=== PATIENT | male | born 1990 | race African-American/Black ===

== ENCOUNTER 2018-11-26 07:50 | Emergency (ER) | payer SELFPAY ==
[2018-11-26 08:05] VITALS: BP 143/86; PULSE 69; TEMP 98.2; BMI 32.1
--- NOTE | 2018-11-26 08:20 | PDOC ---
History of Present Illness - General Chief Complaint: Pain Stated Complaint: VOMITING BLOOD - History of Present Illness Initial Comments: The pt is a 28M w/ no reported PMH who presents for evaluation of vomiting x4- 5 that started at 0430 today w/ a small amount of blood streaked emesis and associated anterior thoracic wall pain. He states that he was drinking last night and that's was incited the emesis. He has never had this happen before. He chest pain is chronic, described as a 'pinch', is non-radiating, but mildly worse today. Denies illness, fevers/chills, DAL[place], vision changes, SOB, abdominal pain, is no longer nauseated, denies D/C, dysuria, hematuria, blood in his stool. 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 Allergies: Denies SH: Social EtOH, denies tobacco and illicit drug use PMD: N/A 11/26/18 08:36 Past History - Past Medical History Allergies/Adverse Reactions: Allergies Allergy/AdvReac Type Severity Reaction Status Date / Time No Known Allergies Allergy Verified 11/26/18 08:02 COPD: No - Immunization History Immunization Up to Date: Yes - Suicide/Smoking/Psychosocial Hx Smoking History: Never smoked Information on smoking cessation initiated: No Hx Alcohol Use: No Drug/Substance Use Hx: No Review of Systems - Review of Systems Able to Perform ROS?: Yes Comments:: GENERAL/CONSTITUTIONAL: No fever or chills. No weakness HEAD, EYES, EARS, NOSE AND THROAT: No change in vision. No ear pain or discharge. No sore throat CARDIOVASCULAR: No chest pain or shortness of breath RESPIRATORY: Denies cough, hemoptysis GASTROINTESTINAL: No diarrhea or constipation GENITOURINARY: No dysuria, frequency, or change in urination MUSCULOSKELETAL: No joint or muscle swelling or pain. No neck or back pain SKIN: No rash NEUROLOGIC: No headache, vertigo, loss of consciousness, or change in strength/ sensation ENDOCRINE: No increased thirst. No abnormal weight change HEMATOLOGIC/LYMPHATIC: No anemia, easy bleeding, or history of blood clots ALLERGIC/IMMUNOLOGIC: No hives or skin allergy 11/26/18 08:20 Is the patient limited [place] proficient: No *Physical Exam - Vital Signs Last Vital Signs Temp Pulse Resp BP Pulse Ox 98.2 F 69 17 143/86 100 11/26/18 08:02 11/26/18 08:02 11/26/18 08:02 11/26/18 08:02 11/26/18 08:02 - Physical Exam Comments: GENERAL: Awake, alert, and oriented to person/place/time, in no acute distress HEAD: No signs of trauma, normocephalic, atraumatic EYES: PERRLA, EOMI, sclera anicteric, conjunctiva clear ENT: Hearing grossly normal, nares patent, oropharynx clear without exudates. No uvular deviation. Moist mucosa LUNGS: No distress, speaks in full sentences, clear to auscultation bilaterally HEART: Regular rate and rhythm, normal S1 and S2, no murmurs appreciated, peripheral pulses normal and equal bilaterally ABDOMEN: Soft, nontender, normoactive bowel sounds. No guarding, no rebound EXTREMITIES: Normal inspection, Normal range of motion, no edema. No clubbing or cyanosis NEUROLOGICAL: Cranial nerves II through XII grossly intact. Normal speech, normal gait, no focal sensorimotor deficits SKIN: Warm, Dry 11/26/18 08:20 ED Treatment Course - LABORATORY CBC & Chemistry Diagram: 11/26/18 08:45 11/26/18 08:45 Medical Decision Making - Medical Decision Making The pt is a 28M w/ no reported PMH who presents for hematemsis s/p multiple episodes of vomiting this AM after drinking EtOH last night ED Course CMP, CBC, UDS CXR IVF, Pepcid, Tylenol 11/26/18 09:22 Lytes wnl No anemia No leukocytosis No DIANA LFTs unremarkable CXR w/o mediastinal air, PNX, PNA ECG NSR; HR 72; QTc 416; early repolarization noted 11/26/18 09:42 +THC 11/26/18 10:05 Pt feels improved at this time plan for D/C w/ PCP f/u Pt in agreement and verbalizes understanding Dispo: home 11/26/18 10:41 *DC/Admit/Observation/Transfer Diagnosis at time of Disposition: Hematemesis Qualifiers: Nausea presence: unspecified Qualified Code(s): K92.0 - Hematemesis Nausea & vomiting Qualifiers: Vomiting type: unspecified Vomiting Intractability: unspecified Qualified Code( s): R11.2 - Nausea with vomiting, unspecified - Discharge Dispostion Disposition: HOME Condition at time of disposition: Stable Decision to Admit order: No - Referrals - Patient Instructions Printed Discharge Instructions: DI for Vomiting -- Adult, DI for Alcoholic Gastritis Additional Instructions: You were seen in the Emergency Department for evaluation of vomiting with blood. Your labs and imaging were unremarkable. Your urine drug screen was notable for THC. THC can also contribute to nausea and vomiting. Review the handout provided at discharge. Follow up with your primary care provider or the referral provided. Return to the Emergency Department if you develop fevers/ chills, chest pain, trouble breathing, vomiting, worsening symptoms, or any new/ concerning symptoms. - Post Discharge Activity
[2018-11-26] MEDS ORDERED: LACTATED RINGERS SOLUTION 1000 ML INFUS.BAG IV ONE (08:39)
[2018-11-26] MEDS ORDERED: ACETAMINOPHEN 325 MG TABLET (FP) PO ONE (08:40)
[2018-11-26] MEDS ORDERED: ACETAMINOPHEN 325 MG TABLET (FP) ONE (08:51)
--- NOTE | 2018-11-26 08:57 | PDOC ---
Attending Attestation - Resident Resident Name: Gagan Santillan - ED Attending Attestation I have performed the following: I have examined & evaluated the patient, The case was reviewed & discussed with the resident, I agree w/resident's findings & plan, Exceptions are as noted - HPI HPI: 28 yo M no significant PMH presents with multiple episodes of vomiting this morning, the last of which was blood-tinged. Denies recent illness, fever, abdominal pain. He has not had similar symptoms in the past. He states he was drinking alcohol last night, typically drinks twice per week. Denies any drug use. Did not eat anything that was bad. Currently c/o mild substernal pinching sensation (which he has had in the past), stomach upset. - Physicial Exam PE: GENERAL: Awake, alert, and fully oriented, in no acute distress HEAD: No signs of trauma EYES: PERRLA, EOMI, sclera anicteric, conjunctiva clear ENT: Auricles normal inspection, hearing grossly normal, nares patent, oropharynx clear without exudates. Dry mucosa NECK: Normal ROM, supple, no lymphadenopathy, JVD, or masses LUNGS: Breath sounds equal, clear to auscultation bilaterally. No wheezes, and no crackles HEART: Regular rate and rhythm, normal S1 and S2, no murmurs, rubs or gallops ABDOMEN: Soft, +mild LUQ tenderness, hyperactive bowel sounds. No guarding, no rebound. No masses EXTREMITIES: Normal range of motion, no edema. No clubbing or cyanosis. No cords, erythema, or tenderness NEUROLOGICAL: Cranial nerves II through XII grossly intact. Normal speech, normal gait. Motor and sensation intact SKIN: Warm, Dry, normal turgor, no rashes or lesions noted. - Medical Decision Making Pt presents with vomiting after drinking last night. He c/o epigastric/ substernal pinching sensation. Will give GI cocktail, IV fluids. CXR to r/o ptx , pneumomediastinum. Blood in emesis was likely a Camelia-Regalado tear due to retching, as he is well-appearing in ED.
[2018-11-26 08:59] LABS: EOS % 1.4 % (0-4.5); HEMOGLOBIN 13.6 GM/dL (11.7-16.9); MCH 33.1 pg (25.7-33.7); MCHC 33.9 g/dl (32.0-35.9); MEAN CELL VOLUME 97.8 fl (80-96); MEAN PLT VOLUME 9.2 fl (7.5-11.1); MONO % 4.7 % (3.8-10.2); NEUT % 80.9 % (42.8-82.8); PLATELET COUNT 178 K/MM3 (134-434); RBC 4.09 M/mm3 (4.00-5.60); RDW 13.1 % (11.9-15.9); WHITE BLOOD COUNT 8.5 K/mm3 (4.0-10.0)
[2018-11-26] MEDS ORDERED: FAMOTIDINE 20 MG/50 ML IVPB 20 MG/50 ML MG IVPB ONE ×2 (09:06→09:09)
[2018-11-26 09:27] LABS: ALBUMIN 4.1 g/dl (3.4-5.0); BILIRUBIN,TOTAL 0.7 mg/dL (0.2-1); BLOOD UREA NITROGEN 11.2 mg/dL (7-18); CALCIUM 9.1 mg/dL (8.5-10.1); CREATININE 1.2 mg/dL (0.55-1.3); POTASSIUM 4.5 mmol/L (3.5-5.1); TOT PROT 7.5 g/dl (6.4-8.2)
[2018-11-26 10:03] LABS: COCAINE, UR NEGATIVE ng/ml (CUTOFF=300); METHADONE, UR NEGATIVE ng/ml (CUTOFF=300); OPIATES, URI NEGATIVE ng/ml (CUTOFF=300); PHENCYCLIDINE,URINE NEGATIVE ng/ml (CUTOFF=25); URINE AMPHETAMINES NEGATIVE ng/ml (CUTOFF=500); URINE BARBITURATES NEGATIVE ng/ml (CUTOFF=200); URINE BENZODIAZEPINES NEGATIVE ng/ml (CUTOFF=200)
--- NOTE | 2018-11-29 00:38 | EKG ---
Test Reason : Blood Pressure : / mmHG Vent. Rate : 072 BPM Atrial Rate : 072 BPM P-R Int : 170 ms QRS Dur : 100 ms QT Int : 380 ms P-R-T Axes : 030 060 038 degrees QTc Int : 416 ms NORMAL SINUS RHYTHM EARLY REPOLARIZATION NORMAL ECG NO PREVIOUS ECGS AVAILABLE Confirmed by MD Andrés, Roge ([id number]) on 11/29/2018 12:37:40 AM Referred By: Confirmed By:Roge Bowen MD
== END 2018-11-26 10:52 | disposition home or self-care (01) ==
LOC: JER 07:50
PROC: 3E033GC Introduction of Other Therapeutic Substance into Peripheral Vein, Percutaneous Approach (ICD-10-PCS; principal; 2018-11-26)
PROC: 3E0337Z Introduction of Electrolytic and Water Balance Substance into Peripheral Vein, Percutaneous Approach (ICD-10-PCS; 2018-11-26)
DX: K29.21 Alcoholic gastritis with bleeding (principal); K92.0 Hematemesis
CPT/HCPCS: 36415; 71045-TC-FY; 80053; 80307; 85025; 93005; 93010; 99283-25

== ENCOUNTER 2021-01-28 13:14 | Emergency (ER) | payer OTHER ==
[2021-01-28 13:53] VITALS: BP 177/103; PULSE 71; TEMP 98.1; BMI 34.7
[2021-01-28] MEDS ORDERED: KETOROLAC TROMETHAMINE 30 MG/1 ML VIAL IM ONE (14:18)
[2021-01-28] MEDS ORDERED: METHOCARBAMOL 500 MG TABLET PO ONE (14:18)
[2021-01-28] MEDS ORDERED: METHOCARBAMOL 500 MG TABLET ONE (14:21)
[2021-01-28] MEDS ORDERED: KETOROLAC TROMETHAMINE 30 MG/1 ML VIAL ONE (14:21)
== END 2021-01-28 16:00 | disposition home or self-care (01) ==
LOC: JER 13:14
PROC: 3E0233Z Introduction of Anti-inflammatory into Muscle, Percutaneous Approach (ICD-10-PCS; principal; 2021-01-28)
DX: M62.830 Muscle spasm of back (principal)
CPT/HCPCS: 72070-TC-FY; 99284-25

== ENCOUNTER 2022-06-30 02:54 | Emergency (ER) | payer OTHER ==
[2022-06-30 03:05] VITALS: BP 161/95; PULSE 65; RESP 20; TEMP 98; BMI 32.1
[2022-06-30] MEDS ORDERED: IBUPROFEN 400 MG TABLET (FP) PO ONE (04:44)
[2022-06-30 04:48] LABS: BASO % 0.9 % (0-2.0); EOS % 3.3 % (0-4.5); HEMATOCRIT 40.7 % (35.4-49); HEMOGLOBIN 13.7 GM/dL (11.7-16.9); LYMPH % 33.3 % (8-40); MCHC 33.7 g/dl (32.0-35.9); MEAN PLT VOLUME 8.8 fl (7.5-11.1); MONO % 8.8 % (3.8-10.2); NEUT % 53.7 % (42.8-82.8); PLATELET COUNT 187 10^3/uL (134-434); RBC 4.15 M/mm3 (4.00-5.60); WHITE BLOOD COUNT 8.6 K/mm3 (4.0-10.0)
[2022-06-30 05:07] LABS: CALCIUM 9.3 mg/dL (8.5-10.1)
[2022-06-30 05:08] LABS: ALBUMIN 4.2 g/dl (3.4-5.0); BLOOD UREA NITROGEN 15.7 mg/dL (7-18); MAGNESIUM 2.1 mg/dL (1.8-2.4)
[2022-06-30 05:11] LABS: CREATININE 1.2 mg/dL (0.55-1.3)
[2022-06-30 05:13] LABS: BILIRUBIN,TOTAL 0.6 mg/dL (0.2-1); TOT PROT 7.7 g/dl (6.4-8.2)
== END 2022-06-30 05:50 | disposition home or self-care (01) ==
LOC: JER 02:54
DX: R07.89 Other chest pain (principal)
CPT/HCPCS: 0241U-QW; 36415; 71046-TC-FY; 80053; 83735; 84484; 85025; 86850; 86900; 86901; 93005; 93010; 99285-25

== ENCOUNTER 2023-06-19 19:34 | Emergency (ER) | payer OTHER ==
[2023-06-19 19:44] VITALS: RESP 18; TEMP 98.2; BMI 33.3
[2023-06-19] MEDS ORDERED: LIDOCAINE 5% TOPICAL PATCH TP ONE (21:06)
[2023-06-19] MEDS ORDERED: KETOROLAC TROMETHAMINE 15 MG/ML VIAL IM ONE (21:07)
[2023-06-19] MEDS ORDERED: LIDOCAINE 4% PATCH TP ONE (21:23)
[2023-06-19] MEDS ORDERED: KETOROLAC TROMETHAMINE 15 MG/ML VIAL ONE (21:23)
[2023-06-20 00:42] VITALS: BP 145/76; PULSE 76
[2023-06-20] MEDS ORDERED: LIDOCAINE PATCH REMOVAL MC ONE (09:00)
== END 2023-06-20 00:50 | disposition home or self-care (01) ==
LOC: JER 19:34
PROC: 3E0233Z Introduction of Anti-inflammatory into Muscle, Percutaneous Approach (ICD-10-PCS; principal; 2023-06-19)
DX: M54.9 Dorsalgia, unspecified (principal); M25.511 Pain in right shoulder; V49.40XA Driver injured in collision with unspecified motor vehicles in traffic accident, initial encounter; Y93.I9 Activity, other involving external motion
CPT/HCPCS: 70450-TC; 71046-TC-FY; 71250-TC; 72125-TC; 72128-TC; 73030-TC-LT-FY; 73200-TC-RT; 74176-TC; 99284-25